=== PATIENT | male | born 1940 | race Caucasian/White ===

== ENCOUNTER 2016-11-15 09:00 | Day surgery (SDC) | payer OTHER ==
[2016-11-08 17:02] LABS: BASOPHILS 0.5 %; BASOPHILS ABSOLUTE 0.03 10/3/uL (0.0-0.16); EOSINOPHILS 1.7 %; EOSINOPHILS ABSOLUTE 0.11 10/3/uL (0.0-0.53); HEMATOCRIT 42.2 % (40.0-51.0); HEMOGLOBIN 15.2 g/dL (13.6-17.8); IMMATURE GRANULOCYTES 0.2 %; IMMATURE GRANULOCYTES ABSOLUTE 0.01 10/3/uL (0.0-0.11); LYMPHOCYTES 24.6 %; LYMPHOCYTES ABSOLUTE 1.55 10/3/uL (0.67-4.30); MEAN CORPUSCULAR HEMOGLOB 30.7 pg (26.0-34.0); MEAN CORPUSCULAR VOLUME 85.3 fL (80-100); MEAN PLATELET VOLUME 11.8 fL (9.2-13.0); MONOCYTES 4.8 %; NEUTROPHILS 68.2 %; NEUTROPHILS ABSOLUTE 4.29 10/3/uL (2.02-8.40); PLATELET COUNT 213 10/3/uL (150-400); RBC DISTRIBUTION WIDTH 12.8 % (12.0-16.0); RED CELL COUNT 4.95 10/6/uL (4.7-6.1); WHITE BLOOD CELLS 6.3 10/3/uL (4.5-10.5)
[2016-11-08 17:04] LABS: MANUAL DIFF NO %
[2016-11-08 17:27] LABS: A/G RATIO 1.1 (0.7-1.9); ALBUMIN 3.9 G/DL (3.5-5.0); ALKALINE PHOSPHATASE 91 U/L (45-117); BUN (BLOOD UREA NITROGEN) 22 MG/DL (6-23); CALCIUM, SERUM 9.1 MG/DL (8.5-10.4); CHLORIDE, SERUM 101 MMOL/L (96-112); CO2 (CARBON DIOXIDE) 29 MMOL/L (24-34); CREATININE 0.89 MG/DL (0.70-1.30); GFR AFRICAN AMERICAN 96 ML/MIN (>=60); GFR NON AFRICAN AMERICAN 82 ML/MIN (>=60); GLOBULIN 3.5 G/DL (2.5-4.1); GLUCOSE, SERUM 133 MG/DL (60-99); POTASSIUM, SERUM 4.2 MMOL/L (3.5-5.3); SGOT(AST) 19 U/L (5-40); SGPT(ALT) 30 U/L (5-65); SODIUM, SERUM 141 MMOL/L (135-148); TOTAL PROTEIN 7.4 G/DL (6.0-8.5)
--- NOTE | ~2016-11-15 | PREOPHP ---
PreOp History and Physical [id number] [place]. [address] NAME: DARA HOPPER : 38 STATUS : PRE [facility]#: [id number] AGE: 76 ADM/REG DATE : MR#: [id number] REPORT SERV DATE: 11/14/16 DICTATED BY: DALTON FLORIAN III DATE: 10/30/16 REPORT STATUS : Draft TRANSCRIBED BY: MODGunnar DATE: 10/30/16 HISTORY OF PRESENT ILLNESS: This 76-year-old male comes to the operating room for open repair of symptomatic right inguinal hernia. The patient has a right inguinal hernia which he noticed about six-eight weeks ago. The hernia was associated with some discomfort. The patient has had no nausea, vomiting, or obstructive symptoms. The patient has a right inguinal hernia which was fairly large. He comes to the operating room now for open repair of this hernia. PAST MEDICAL HISTORY: Essentially unremarkable. No history of diabetes, hypertension, cardiopulmonary disease. MEDICATIONS: None regularly. ALLERGIES: NONE. PAST SURGICAL HISTORY: Status post right shoulder surgery. SOCIAL HISTORY: No history of tobacco or alcohol use. REVIEW OF SYSTEMS: The patient complains of joint pain. His 14-point review of systems is otherwise unremarkable. PHYSICAL EXAMINATION: GENERAL: Reveals a male, in no acute distress. He is alert and oriented x3. VITAL SIGNS: Blood pressure 139/80, temp 97.5, pulse 80. HEENT: Unremarkable. Cranial nerves II through XII were normal. LUNGS: Clear. CARDIAC: Normal. ABDOMEN: Soft and nontender. In the right groin, there is a fairly large right inguinal hernia. This is reducible. The left groin is normal. EXTREMITIES: Normal. ASSESSMENT: A 76-year-old male with symptomatic right inguinal hernia. PLAN: The patient comes to the operating room now for open repair of this right inguinal hernia. This procedure, the risks, benefits, and alternatives, including not limited to the risk for bleeding, infection, pain, swelling, scarring, deformity to the area, seroma formation, hematoma formation, recurrence of the hernia, nerve injury, chronic paresthesia or pain in the thigh, scrotum, or groin, chronic neuralgia or neuroma, and unforeseen complications including deep venous thrombosis, pulmonary embolus, myocardial infarction, stroke, pneumonia, and , have been explained to the patient prior to surgery. The expected length of recovery has been explained. His questions have been answered. He understands the risks and agrees to the surgery as planned. It should be noted that the patient has a soft tissue mass over his right occipital scalp. This is about 3 cm in size. It is soft, discrete, mobile, and nontender. This is not PreOp History and Physical [address] [address] NAME: DARA HOPPER : 38 STATUS : PRE [facility] PAT#: [id number] AGE: 76 ADM/REG DATE : MR#: [id number] REPORT SERV DATE: 11/14/16 DICTATED BY: DALTON FLORIAN III DATE: 10/30/16 REPORT STATUS : Draft TRANSCRIBED BY: JULIANA DATE: 10/30/16 symptomatic and the patient does not wish to have it removed at this time. RHLj/JULIANA Dalton Florian III, M.D. / [id number]
--- NOTE | ~2016-11-15 | OP ---
Record Of Operation [facility] [address] [place]. [address] NAME: DARA HOPPER : 38 STATUS : [facility]#: [id number] AGE: 76 ADM/REG DATE : 11/15/16 MR#: [id number] REPORT SERV DATE: 11/15/16 DICTATED BY: DALTON MEDEL III DATE: 11/15/16 REPORT STATUS : Draft TRANSCRIBED BY: MODGunnar DATE: 11/15/16 DATE OF PROCEDURE: 11/15/2016 PREOPERATIVE DIAGNOSIS: Symptomatic right inguinal hernia. OPERATIVE DIAGNOSIS: Symptomatic right inguinal hernia, indirect right inguinal hernia. PROCEDURE: Open Jayla tension-free repair of right inguinal hernia with Prolene mesh. SURGEON: Dalton Medel M.D. ANESTHESIA: General with intubation. COMPLICATIONS: None. ESTIMATED BLOOD LOSS: Less than 5 mL. SPECIMENS: None. DRAINS: None. LAP AND SPONGE COUNT: Correct x3. BRIEF HISTORY: This 76-year-old male presented with a symptomatic right inguinal hernia. It was felt that open repair of this hernia was indicated. On this procedure, the risks, benefits, and alternatives, including but not limited to the risk for bleeding, infection, pain, swelling, scarring, deformity to the area, seroma formation, hematoma formation, recurrence of the hernia, nerve injury, chronic paresthesia or pain in the thigh; scrotum; or groin, chronic neuralgia or neuroma, and unforeseen complications including deep venous thrombosis, pulmonary embolus, myocardial infarction, stroke, pneumonia, and , were fully and completely explained to the patient prior to surgery. The expected length of recovery was explained. The patient's questions were answered. He understood the risks and agreed to surgery as planned. DESCRIPTION OF PROCEDURE: After being appropriately identified and after discussing risks of surgery with the patient and his family again in the preoperative area and after identifying the hernia with him in the preoperative area, the patient was taken to the operating room and placed in the supine position on the operating room table. General anesthesia was administered. He was intubated without difficulty. The abdomen and groins were prepped and draped sterilely in the usual fashion. After an appropriate "time-out" per JCAHO standards, a small oblique incision was made in the right groin from the pubic tubercle medially towards the anterior superior iliac spine laterally. The incision was continued through the subcutaneous tissue. Hemostasis was controlled with cautery. The incision was continued down to the external oblique fascia. This fascia was opened along the direction of its fibers, so as to open the external inguinal ring. Using sharp dissection, the underlying ilioinguinal and genitofemoral nerves were identified. These were carefully isolated and Record Of Operation [id number] [place]. [address] NAME: DARA HOPPRE : 38 STATUS : [facility]#: [id number] AGE: 76 ADM/REG DATE : 11/15/16 MR#: [id number] REPORT SERV DATE: 11/15/16 DICTATED BY: DALTON MEDEL III DATE: 11/15/16 REPORT STATUS : Draft TRANSCRIBED BY: JULIANA DATE: 11/15/16 protected to one side. Using sharp dissection, the spermatic cord and its contents were mobilized from the floor of the canal. A [place] drain was placed beneath the spermatic cord. There was noted to be an indirect hernia sac dissecting along the spermatic cord. Using sharp dissection, this hernia sac was dissected free from the spermatic cord. The hernia sac was opened. The hernia sac was dissected down to the internal ring. The abdominal contents were reduced. The hernia sac was then ligated with a 2-0 silk pursestring and then ligated with another 2-0 silk suture, in a high ligation fashion, at the level of the internal ring. The floor of the canal was felt secured and there was no direct component to the hernia. A Prolene mesh was then selected and cut to the appropriate size for the floor of the canal. A slit was made in the mesh laterally to incorporate spermatic cord. The mesh was then secured to the floor of the canal with a running 2-0 Prolene suture, which was placed between the edge of the mesh and shelving edge of the inguinal ligament laterally and the edge of the mesh and internal oblique and transversalis fascia medially. Upon completion of this, the mesh lay nicely on the floor of the canal. It was not twisted or kinked in any way. It was not under any tension. A small finger could be placed through the internal ring, so that the spermatic vessels had not been unduly tightened or narrowed. Hemostasis was assured. The external oblique fascia was closed with running 2-0 silk suture. The subcutaneous tissue was closed with running 3-0 chromic suture. The skin was closed with running subcuticular 4-0 Monocryl stitch. The incision was injected with 0.5% Marcaine. Dressings were applied. Anesthesia was reversed and the patient was taken to the recovery room in stable condition. He tolerated the procedure well. His family was informed the results of surgery. The patient was discharged when stable and comfortable, able to void and ambulate. His family was advised to keep his wound clean and dry for [address] He should not drive for three to four days after surgery while using narcotics, and that he should resume his usual medications. He has been asked to return in two weeks for followup or sooner for any nausea, vomiting, fever, chills, wound drainage, or other problems prior to that time. He was advised not to perform any heavy lifting for four to five weeks. He was given a prescription for Percocet 7.5 one t.i.d., #12, as needed for pain, which he was advised not to use while driving. BILLY/JULIANA Dalton Medel III, M.D. / [id number] CC: Edy Fernandez III, M.D.
[~2016-11-15 09:00] MED LIST: DHE1 PO; FISH-EPA1000 MG PO; MSM1000 MG PO; MULTIVIT/MIN PO; VITAMIN B-122500 MCG SL
== END 2016-11-15 20:35 | disposition home or self-care (01) ==
LOC: SDC 09:00
PROVIDERS: Surgery
PROC: 0YU50JZ Supplement Right Inguinal Region with Synthetic Substitute, Open Approach (ICD-10-PCS; principal; 2016-11-15 11:15)
DX: K40.90 Unilateral inguinal hernia, without obstruction or gangrene, not specified as recurrent (principal); Z98.890 Other specified postprocedural states; Z79.899 Other long term (current) drug therapy
CPT/HCPCS: 71020; 80053; 85025; 93005; A9270-GY; C1781; J0690; J1170; J2405; J2710; J3010